=== PATIENT | male | born 1965 | race Caucasian/White ===

== ENCOUNTER 2018-01-20 10:31 | Emergency (ER) | payer OTHER, SELFPAY ==
[2018-01-20 10:40] VITALS: BP 139/88; PULSE 73; RESP 18; TEMP 36.9; O2SAT 97
--- NOTE | 2018-01-20 10:41 | ED.GENADULT ---
HPI - General Adult General Chief complaint: Recheck/Abnormal Lab/Rx Stated complaint: Hypoglycemic Time Seen by Provider: 01/20/18 10:40 Source: patient and EMS Mode of arrival: EMS Limitations: no limitations History of Present Illness HPI narrative: Patient is a 52-year-old male who is it insulin-dependent diabetic. Presenting with hypoglycemia. 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 He did give himself his regular dose of Lantus he had up large dinner it himself of short-acting insulin he had again however he was found to have a glucose of 30. He is awake he is alert and oriented now. He was given D50 he has now had she is and peanut butter and crackers. Related Data Home Medications Medication Instructions Recorded Confirmed insulin lispro [Humalog U-100 10 unit SQ QIDACHS #0 01/15/11 Insulin] lisinopril 5 mg PO QDAY #0 01/15/11 insulin glargine [Lantus U-100 30 unit SQ BID #0 01/05/13 Insulin] aspirin 81 mg PO QDAY #0 01/14/13 multivitamin [Multiple Vitamins] 1 tab PO QDAY #0 09/14/16 Previous Rx's Medication Instructions Recorded oseltamivir [Tamiflu] 75 mg PO BID #9 cap 09/14/16 Allergies Allergy/AdvReac Type Severity Reaction Status Date / Time vancomycin [VANCOMYCIN] Allergy Severe RED SKIN Unverified 01/20/18 10:45 AND COULDN'T BREATH Review of Systems Review of Systems GENERAL: Denies chills, fatigue, malaise, fever, sweats, travel HEENT: Denies sinus pain, ear pain, sore throat, difficulty swallowing, neck pain RESPIRATORY: Denies dyspnea, cough, wheezing, hemoptysis, sputum. CARDIOVASCULAR: Denies chest pain, palpitations, orthopnea, edema GASTROINTESTINAL: Denies nausea, vomiting, abdominal pain, diarrhea, constipation, melena. : Denies dysuria, frequency, incontinence, hematuria, urinary retention, flank pain. MUSCULOSKELETAL: Denies weakness, joint pain, or bony pain SKIN: No rash, no erythema, no pruritus NEUROLOGIC: Denies weakness, dizziness, headache, numbness, change in speech, confusion PSYCHIATRIC: No concerning psychosocial issues. 12 point review of systems is negative except for those stated above and HPI All systems reviewed & are unremarkable except as noted in HPI and below PFSH Medical History Diabetes (Acute) Social History Smoking Status: Current every day smoker Exam Initial Vital Signs Initial Vital Signs: Vital Signs Temperature 98.5 F 01/20/18 10:40 Pulse Rate 73 01/20/18 10:40 Respiratory Rate 18 01/20/18 10:40 Blood Pressure 139/88 H 01/20/18 10:40 Pulse Oximetry 97 01/20/18 10:40 GENERAL: Well-appearing, well-nourished and in no acute distress. HEENT: Head atraumatic,EOMI, pupils reactive, face symmetric CARDIOVASCULAR: Regular rate and rhythm without murmurs, rubs or gallops. RESPIRATORY: Breath sounds equal bilaterally, no wheezes rales or rhonchi. ABDOMEN: Soft, nontender. Normoactive bowel sounds all 4 quadrants. No guarding or rebound. EXTREMITIES: Normal range of motion, no clubbing or edema. Neurovascularly intact NEUROLOGICAL: Alert and oriented x4.Normal gait and speech. Cranial nerves II through XII grossly intact. Good [id number], good bcyi-br-dyqa, strength equal bilaterally, no dysarthria or aphasia, sensation in tact to soft touch bilaterally, no visual changes, no facial droop SKIN: Warm, dry, no laceration, no petechiae, no rashes or lesions. Course Orders Ordered: ED Orders 01/20/18 11:00 Basic Metabolic Panel Stat Complete Blood Count AUTO DIFF Stat Vital Signs - 8 hr 01/20/18 10:40 01/20/18 12:44 01/20/18 13:29 Temperature 98.5 F Pulse Rate 73 75 74 Respiratory Rate 18 16 20 Blood Pressure 139/88 H 145/91 H Blood Pressure [Right Arm] 133/79 H Pulse Oximetry 97 99 97 Medical Decision Making MDM Narrative Medical decision making narrative: Patient is very familiar with diabetes he has been dealing with it for 42 years. He knows that while he is active he does not need but insulin. I think even though he decreased his Humalog dose by half last night probably was still too much. Lab Data Lab results reviewed: Yes I reviewed the patient's lab results. Result diagrams: 01/20/18 11:00 01/20/18 11:00 Lab Results 01/20/18 01/20/18 Range/Units 11:00 11:00 WBC 5.1 (4.5-11.0) X10^3/uL RBC 4.23 L (4.5-5.9) X10^6/uL Hgb 13.3 L (13.5-17.5) g/dL Hct 38.5 L (41-53) % MCV 91.1 (80-100) fL MCH 31.4 (26-34) PG MCHC 34.4 (30-36) % RDW 13.0 (11.6-14.8) % Plt Count 266 (150-400) X10^3/uL Neut % (Auto) 70.7 (50-75) % Lymph % (Auto) 18.1 L (25-40) % [place] % (Auto) 7.9 (3-14) % Eos % (Auto) 2.8 (2-4) % Baso % (Auto) 0.5 (0-2) % Neut # (Auto) 3600 (2180-8503) /uL Sodium 140 (137-145) mmol/L Potassium 4.2 (3.4-5.1) mmol/L Chloride 102 (98-107) mmol/L Carbon Dioxide 30 (22-32) mmol/L BUN 15 (9-20) mg/dL Creatinine 0.60 L (0.66-1.25) mg/dL Estimated GFR > 60.0 (>60) mL/min BUN/Creatinine Ratio 25.0 H (6-22) Glucose 145 H (70-100) mg/dL Calcium 8.2 L (8.4-10.2) mg/dL Discharge Plan Departure Patient Disposition: Home, Self-Care Clinical Impression: Hypoglycemia Discharge Date/Time: 01/20/18 13:30 Interventions: ED Discharge Assessment Last Done: 01/20/18 13:29 Instructions: DI for Hypoglycemia Activity Restrictions/Additional Instructions: *You have been diagnosed with low blood sugar *What to do: May require on adjustment in medication please discuss this with your primary doctor. -I recommend decreasing you're Humalog dose at nighttime. While working. *Continue to take medications as directed *Follow up with your primary care provider in 2-3 days *Return to ER if you should have any new, worsening or concerning symptoms Prescriptions: No Action lisinopril 5 MG tablet 5 mg PO QDAY Qty: 0 RF: 0 insulin lispro [Humalog U-100 Insulin] 100 UNIT/1 ML solution 10 unit SQ QIDACHS Qty: 0 RF: 0 insulin glargine [Lantus U-100 Insulin] 100 UNIT/1 ML solution 30 unit SQ BID Qty: 0 RF: 0 aspirin 81 MG tablet,delayed release (DR/EC) 81 mg PO QDAY Qty: 0 RF: 0 multivitamin [Multiple Vitamins] 1 EACH tablet 1 tab PO QDAY Qty: 0 RF: 0 oseltamivir [Tamiflu] 75 MG capsule 75 mg PO BID Qty: 9 RF: 0 Referrals: Leo Sykes MD [Primary Care Provider] -
--- NOTE | 2018-01-20 10:45 | DIET.PN ---
Brought patient 2 peanut butter, crackers, 2 cheese sticks and milk
[2018-01-20 11:12] LABS: Add Manual Diff / Slide Review NO; Basophils Percent Auto 0.5 % (0-2); Eosinophils Percent Auto 2.8 % (2-4); Hematocrit 38.5 % (41-53); Hemoglobin 13.3 g/dL (13.5-17.5); Lymphocytes Percent Auto 18.1 % (25-40); Mean Corpuscular HGB Conc 34.4 % (30-36); Mean Corpuscular Hemoglobin 31.4 PG (26-34); Mean Corpuscular Volume 91.1 fL (80-100); Monocytes Percent Auto 7.9 % (3-14); Neutrophils Absolute Auto 3600 /uL (3000-5900); Neutrophils Percent Auto 70.7 % (50-75); Platelet Count 266 X10^3/uL (150-400); Red Blood Cell Count 4.23 X10^6/uL (4.5-5.9); White Blood Cell Count 5.1 X10^3/uL (4.5-11.0)
[2018-01-20 11:22] LABS: Blood Urea Nitrogen 15 mg/dL (9-20); Calcium 8.2 mg/dL (8.4-10.2); Carbon Dioxide 30 mmol/L (22-32); Chloride 102 mmol/L (98-107); Estimated Glomerular Filt Rate > 60.0 mL/min (>60); Glucose 145 mg/dL (70-100); HEMOLYSIS < 15 (0-50); Potassium 4.2 mmol/L (3.4-5.1); Sodium 140 mmol/L (137-145)
[2018-01-20 12:44] VITALS: BP 133/79; PULSE 75; RESP 16; O2SAT 99
[2018-01-20 13:29] VITALS: BP 145/91; PULSE 74; RESP 20; O2SAT 97
== END 2018-01-20 13:30 | disposition home or self-care (01) ==
PROVIDERS: Emergency Provider Emergency Medicine; PCP Family Medicine
DX: E16.2 Hypoglycemia, unspecified (principal)
CPT/HCPCS: 80048; 82962; 85025; 99283

== ENCOUNTER 2018-10-10 00:28 | Emergency (ER) | payer OTHER, SELFPAY ==
[2018-10-10 00:57] VITALS: BP 149/89; PULSE 83; RESP 20; TEMP 36.6; O2SAT 99; BMI 25.1
--- NOTE | 2018-10-10 01:48 | ED.SKABFB ---
HPI - Skin/Abscess/Foreign Bdy General Chief complaint: Skin/Abscess/Foreign Body Stated complaint: sore on stomach Time Seen by Provider: 10/10/18 01:48 Source: patient Mode of arrival: ambulatory Limitations: no limitations History of Present Illness HPI narrative: The patient has a skin lesion left anterior abdomen that has been there for 2 weeks. Without injury or other problems the area site where the superficial skin. There was no purulent discharge. This area is still erythematous and raised. There are no other issues like bug bites or mosquito bites. There is no obvious reason this issue happened. He has no chronic skin illness, and no other skin lesions. Related Data Home Medications Medication Instructions Recorded Confirmed insulin lispro [Humalog U-100 10 unit SQ QIDACHS #0 01/15/11 Insulin] lisinopril 5 mg PO QDAY #0 01/15/11 insulin glargine [Lantus U-100 30 unit SQ BID #0 01/05/13 Insulin] aspirin 81 mg PO QDAY #0 01/14/13 multivitamin [Multiple Vitamins] 1 tab PO QDAY #0 09/14/16 Previous Rx's Medication Instructions Recorded oseltamivir [Tamiflu] 75 mg PO BID #9 cap 09/14/16 doxycycline hyclate 100 mg PO BID 10 Days #20 tab 10/10/18 Allergies Allergy/AdvReac Type Severity Reaction Status Date / Time vancomycin [VANCOMYCIN] Allergy Severe RED SKIN Unverified 01/20/18 10:45 AND COULDN'T BREATH Review of Systems Review of Systems ROS Unobtainable: All systems reviewed & are unremarkable except as noted in HPI and below Constitutional Denies chills and Denies fever(s) Gastrointestinal Gastrointestinal: Denies abdominal pain, Denies change in bowel habits, Denies diarrhea, Denies nausea and Denies vomiting Integumentary/Breasts Comments: 1.5 x 1.5 shallow skin avulsion on the left lower abdomen. There is no purulent discharge. There is slightly thickened. There is no area of erythema around the open skin lesion. He has a slight cellulitis around the site. [facility] Medical History Hypertension (Acute) Diabetes (Acute) Social History Smoking Status: Never smoker Social History Smoking Status: Never smoker Exam Initial Vital Signs Initial Vital Signs: Vital Signs Temperature 98 F 10/10/18 00:57 Pulse Rate 83 10/10/18 00:57 Respiratory Rate 20 10/10/18 00:57 Blood Pressure 149/89 H 10/10/18 00:57 Pulse Oximetry 99 10/10/18 00:57 Const General: cooperative and well developed Nutritional Appearance: well nourished Orientation: alert, awake, oriented x3 and not confused GI Inspection: non-distended Palpation: soft, no hepatosplenomegaly, No guarding, No pulsatile mass and No tender Auscultation: normal bowel sounds Skin General: No no rashes or lesions noted, No jaundice and No petechiae Other: Circular area of excoriated skin to the left lower abdomen. Slight induration with area of inflammation around it. No purulence. The excoriated area is not seemingly infected, but there is surrounding mild cellulitis. Course Course Narrative: The patient has an area of slight erythema in the left lower abdomen. For diabetic management I did give him a refill for 31 meli 8 mm needles. Orders Ordered: Discontinued Medications Doxycycline Hyclate (Vibramycin) 100 mg PO NOW ONE Stop: 10/10/18 02:01 Vital Signs - 8 hr 10/10/18 00:57 Temperature 98 F Pulse Rate 83 Respiratory Rate 20 Blood Pressure 149/89 H Pulse Oximetry 99 Discharge Plan Departure Patient Disposition: Home Clinical Impression: Abdominal wall cellulitis Instructions: DI for Cellulitis -- Adult Activity Restrictions/Additional Instructions: Doxycycline 2 times daily for 10 days. Apply warm compresses to the site frequently. Return here for increasing redness or drainage. Return here if he develops fever. Prescriptions: New doxycycline hyclate 100 mg tablet 100 mg PO BID 10 Days Qty: 20 RF: 0 No Action lisinopril 5 MG tablet 5 mg PO QDAY Qty: 0 RF: 0 insulin lispro [Humalog U-100 Insulin] 100 UNIT/1 ML solution 10 unit SQ QIDACHS Qty: 0 RF: 0 insulin glargine [Lantus U-100 Insulin] 100 UNIT/1 ML solution 30 unit SQ BID Qty: 0 RF: 0 aspirin 81 MG tablet,delayed release (DR/EC) 81 mg PO QDAY Qty: 0 RF: 0 multivitamin [Multiple Vitamins] 1 EACH tablet 1 tab PO QDAY Qty: 0 RF: 0 oseltamivir [Tamiflu] 75 MG capsule 75 mg PO BID Qty: 9 RF: 0 Referrals: Leo Sykes MD [Primary Care Provider] -
[2018-10-10] MEDS: DOXYCYCLINE HYCLATE 100 MG TABLET PO (02:00)
[2018-10-10 02:09] VITALS: BP 151/85; PULSE 90; RESP 20; O2SAT 99
== END 2018-10-10 02:26 | disposition home or self-care (01) ==
PROVIDERS: Emergency Provider Emergency Medicine; PCP Family Medicine
DX: L03.311 Cellulitis of abdominal wall (principal)
CPT/HCPCS: 99282

== ENCOUNTER 2020-06-25 20:47 | Emergency (ER) | payer OTHER, SELFPAY ==
--- NOTE | 2020-06-25 21:08 | DI.RAD.S_ITS ---
PROCEDURE: XR RIBS LT MIN 3V W CXR1V INDICATIONS: fall with rib pain TECHNIQUE: 2 views of the left ribs were acquired, along with a single view chest. COMPARISON: [facility], CT, PE STUDY (CTA CHEST), 01/15/2011, 16:42. [facility], CR, CHEST 1 VIEW, 09/14/2016, 20:10. [facility], , CHEST 2 VIEW, 04/24/2015, 16:55. FINDINGS: Surgical changes and devices: Cholecystectomy clips are seen. Bones and chest wall: A marker is placed upon the area of clinical concern. Within this region, no acute rib fracture or other significant rib abnormality can be seen. There are remote left posterior rib fractures seen, as before. No suspicious bony lesions. Age-appropriate bony degenerative changes are seen. Overlying soft tissues appear unremarkable. Lungs and pleura: No pleural effusions or pneumothorax. Lungs appear clear. Mediastinum: Mediastinal contours appear normal. Heart size is normal. IMPRESSION: No displaced, acute rib fracture can be seen. Several remote left posterior rib fractures can be seen. No pneumothorax. Dictated by: Brian Aguirre M.D. on 06/26/2020 at 7:22 Approved by: Brian Aguirre M.D. on 06/26/2020 at 7:25
[2020-06-25 21:13] VITALS: BP 129/90; PULSE 80; RESP 20; TEMP 36.6; O2SAT 100
--- NOTE | 2020-06-25 22:28 | ED.BACK ---
HPI - Back Pain/Injury General Chief Complaint: Back Pain/Injury Stated Complaint: FALL LEFT SIDE RIB PAIN Time Seen by Provider: 06/25/20 21:00 Source: patient and family Mode of arrival: Ambulatory Limitations: no limitations History of Present Illness HPI Narrative: 54-year-old male nonsmoker with history of diabetes presents with family in the chief complaint of left rib pain after a fall yesterday. He states he fell onto his left-sided ribs into the bathtub and has had pain, particularly with deep breath or motion since. He denies any head, neck or back pain. He denies any coughing up of blood. Complaint: fall Onset (ago): day(s) Duration: constant Severity: moderate Quality: sharp Relieving factors: immobilization Exacerbating factors: movement, deep breaths and coughing/sneezing Context: fall Associated symptoms: denies other symptoms Related Data Home Medications Medication Instructions Recorded Confirmed insulin lispro [Humalog U-100 10 unit SQ QIDACHS #0 01/15/11 Insulin] lisinopril 5 mg PO QDAY #0 01/15/11 insulin glargine [Lantus U-100 30 unit SQ BID #0 01/05/13 Insulin] aspirin 81 mg PO QDAY #0 01/14/13 multivitamin [Multiple Vitamins] 1 tab PO QDAY #0 09/14/16 Previous Rx's Medication Instructions Recorded oseltamivir [Tamiflu] 75 mg PO BID #9 cap 09/14/16 hydrocodone-acetaminophen 1 tab PO Q4-6H PRN #10 tab 06/25/20 Allergies Allergy/AdvReac Type Severity Reaction Status Date / Time vancomycin [VANCOMYCIN] Allergy Severe RED SKIN Unverified 01/20/18 10:45 AND COULDN'T BREATH Review of Systems Constitutional Constitutional: Denies chills, Denies fatigue, Denies fever(s), Denies frequent falls, Denies lethargy and Denies weakness Eyes Eyes: Denies change in vision, Denies eye discharge, Denies irritation and Denies loss of vision ENT Ears, Nose, Mouth, and Throat: Denies change in voice, Denies dizziness, Denies neck pain, Denies sore throat and Denies throat swelling Cardiovascular Cardiovascular: Reports chest pain, Denies irregular heart rhythm, Denies lightheadedness, Denies palpitations, Denies dyspnea, Denies dyspnea on exertion and Denies orthopnea Respiratory Respiratory: Denies cough, Denies dyspnea, Denies dyspnea on exertion and Denies wheezing Gastrointestinal Gastrointestinal: Denies abdominal pain, Denies change in bowel habits, Denies diarrhea, Denies nausea and Denies vomiting Musculoskeletal Musculoskeletal: Denies neck pain and Denies numbness Integumentary/Breasts Skin/Breast: Denies pruritus, Denies erythema, Denies rash and Denies wounds Neurologic Neurologic: Denies behavioral changes, Denies confusion, Denies dizziness, Denies frequent falls, Denies loss of vision, Denies numbness and Denies weakness Psychiatric Psychiatric: Denies anxiety, Denies behavioral changes, Denies confusion, Denies depression, Denies homicidal ideation and Denies suicidal ideation Endocrine Endocrine: Denies fatigue, Denies flushing and Denies palpitations Hematologic/Lymphatic Hematologic/Lymphatic: Denies easy bruising Allergic/Immunologic Allergic/Immunologic: Denies urticaria, Denies throat swelling and Denies wheezing Patient History Medical History Diabetes Hypertension Social History Smoking Status: Never smoker Smoking Status: Never smoker alcohol intake frequency: a few times a month Substance Use Type: does not use Exam Narrative Exam Narrative: GENERAL: [54] year old patient appears stated age. Well-nourished, well-developed patient, in mild distress. Rubbing his left-sided ribs, GCS 15 HEAD: Atraumatic. Normocephalic. EYES: Pupils equal round and reactive. Extraocular motions intact. No scleral icterus. No injection or drainage. ENT: Nose without bleeding, purulent drainage. Throat without erythema, tonsillar hypertrophy or exudate. Airway patent. NECK: Trachea midline. Non tender CARDIOVASCULAR: Regular rate and rhythm without murmurs, gallops, or rubs. Left posterior ribs tender to palpation, no crepitance or clicking noted. No external evidence of injury such as bruising, abrasion or laceration. RESPIRATORY: Clear to auscultation. Breath sounds equal bilaterally. No wheezes, rales, or rhonchi. GASTROINTESTINAL: Abdomen soft, non-tender, nondistended. EXTREMITIES: No edema or joint tenderness. BACK: Nontender without deformity or crepitance. No flank tenderness. NEURO: AOx3. SKIN: No rash or erythema of visible areas Initial Vital Signs Initial Vital Signs: Vital Signs Temperature 97.9 F 06/25/20 21:13 Pulse Rate 80 06/25/20 21:13 Respiratory Rate 20 06/25/20 21:13 Blood Pressure 129/90 06/25/20 21:13 Pulse Oximetry 100 06/25/20 21:13 Course Orders Ordered: Discontinued Medications Hydrocodone Bitart/Acetaminophen (Hydrocodone/Acet 5/325 Prepack) 1 bottle MISC SEEINSTR ONE Stop: 06/25/20 23:09 Last Admin: 06/25/20 23:16 Dose: 1 bottle Documented by: ARIELLE Vital Signs Vital signs: Vital Signs - 8 hr 06/25/20 21:13 Temperature 97.9 F Pulse Rate 80 Respiratory Rate 20 Blood Pressure 129/90 Pulse Oximetry 100 MDM - Back Pain/Injury Imaging Data Chest x-ray: Radiologist's Impression: Chart Viewer Diagnostics DATE TYPE STATUS REF RANGE/AUTHOR Hx 06/25/20 21:08 Brian Aguirre Steven A 54, M0 1965 [facility] ER, Main ED 72.575kg Back Pain/Injury Search Chart No Data to Display Total Pending Discharge RED SKIN AND COULDN'T BREATH ONSET 06/25/20 21:13 Suresh Starkey 54 M [address] [address]VBqt ReportAddendum Patient: JakySuresh AMR#: [id number]: 1965Acct:[id number]/Sex: 54 / MDate of Service: 06/25/20Loc: EDAccession Number: [id number] Procedure: XR ribs LT min 3V w CXR1V Ordering Provider: Jamie Vicente D.O. ADDENDUMThis report includes an Addendum and supersedes previous reports for this exam. PROCEDURE: XR RIBS LT MIN 3V W CXR1V INDICATIONS: fall with rib pain TECHNIQUE: 2 views of the left ribs were acquired, along with a single view chest. COMPARISON: [facility], CT, PE STUDY (CTA CHEST), 01/15/2011, 16:42. [facility], CR, CHEST 1 VIEW, 09/14/2016, 20:10. [facility], CHEST 2 VIEW, 04/24/2015, 16:55. FINDINGS: Surgical changes and devices: Cholecystectomy clips are seen. Bones and chest wall: A marker is placed upon the area of clinical concern. Within this region, no acute rib fracture or other significant rib abnormality can be seen. There are remote left posterior rib fractures seen, as before. No suspicious bony lesions. Age-appropriate bony degenerative changes are seen. Overlying soft tissues appear unremarkable. Lungs and pleura: No pleural effusions or pneumothorax. Lungs appear clear. Mediastinum: Mediastinal contours appear normal. Heart size is normal. IMPRESSION: No displaced, acute rib fracture can be seen. Several remote left posterior rib fractures can be seen. No pneumothorax. Dictated by: Brian Aguirre M.D. on 06/26/2020 at 7:22 Approved by: Brian Aguirre M.D. on 06/26/2020 at 7:25 ADDENDUM: This upon further review, very faintly seen, nondisplaced left posterior 7th and 8th ribs can be seen. There is a minimally displaced left anterior 6th rib fracture also noted. These fractures are described on the preliminary report, although the fractures are on the LEFT not on the right. Dictated by: Brian Aguirre M.D. on 06/26/2020 at 7:36 Approved by: Brian Aguirre M.D. on 06/26/2020 at 7:39 Addendum Dictated By:Brian Aguirre MDAddyifan Signed By:Addendum Cosigned By:DD/ TD/TT: 06/26/20 PROCEDURE: XR RIBS LT MIN 3V W CXR1V INDICATIONS: fall with rib pain TECHNIQUE: 2 views of the left ribs were acquired, along with a single view chest. COMPARISON: [facility], CT, PE STUDY (CTA CHEST), 01/15/2011, 16:42. [facility], , CHEST 1 VIEW, 09/14/2016, 20:10. [facility], , CHEST 2 VIEW, 04/24/2015, 16:55. FINDINGS: Surgical changes and devices: Cholecystectomy clips are seen. Bones and chest wall: A marker is placed upon the area of clinical concern. Within this region, no acute rib fracture or other significant rib abnormality can be seen. There are remote left posterior rib fractures seen, as before. No suspicious bony lesions. Age-appropriate bony degenerative changes are seen. Overlying soft tissues appear unremarkable. Lungs and pleura: No pleural effusions or pneumothorax. Lungs appear clear. Mediastinum: Mediastinal contours appear normal. Heart size is normal. IMPRESSION: No displaced, acute rib fracture can be seen. Several remote left posterior rib fractures can be seen. No pneumothorax. Dictated by: Brian Aguirre M.D. on 06/26/2020 at 7:22 Approved by: Brian Aguirre M.D. on 06/26/2020 at 7:25 Discharge Plan Departure Patient Disposition: Home Clinical Impression: Fracture, ribs Qualifiers: Encounter type: initial encounter Rib fracture type: multiple ribs Fracture type: closed Laterality: left Qualified Code(s): S22.42XA - Multiple fractures of ribs, left side, initial encounter for closed fracture Activity Restrictions/Additional Instructions: *You have been diagnosed with [fall with left-sided rib fractures] *What to do: *Take medications as directed *Follow up with your primary care provider in 2-3 days, call for an appointment. Let them know you were seen in the Emergency Department and that we ask that you be seen in follow up *Return to ER if you should have any new, worsening or concerning symptoms Prescriptions: New hydrocodone-acetaminophen 5-325 mg tablet 1 tab PO Q4-6H PRN (Reason: pain) Qty: 10 RF: 0 No Action lisinopril 5 MG tablet 5 mg PO QDAY Qty: 0 RF: 0 insulin lispro [Humalog U-100 Insulin] 100 UNIT/1 ML solution 10 unit SQ QIDACHS Qty: 0 RF: 0 insulin glargine [Lantus U-100 Insulin] 100 UNIT/1 ML solution 30 unit SQ BID Qty: 0 RF: 0 aspirin 81 MG tablet,delayed release (DR/EC) 81 mg PO QDAY Qty: 0 RF: 0 multivitamin [Multiple Vitamins] 1 EACH tablet 1 tab PO QDAY Qty: 0 RF: 0 oseltamivir [Tamiflu] 75 MG capsule 75 mg PO BID Qty: 9 RF: 0 Referrals: Leo Sykes MD [Primary Care Provider] -
[2020-06-25] MEDS: HYDROCODONE/ACET 5/325 PREPACK 1 BOTTLE MISC (23:16)
== END 2020-06-25 23:18 | disposition home or self-care (01) ==
PROVIDERS: Emergency Provider Emergency Medicine; PCP Family Medicine
DX: S22.42XA Multiple fractures of ribs, left side, initial encounter for closed fracture (principal); W18.2XXA Fall in (into) shower or empty bathtub, initial encounter; E11.9 Type 2 diabetes mellitus without complications
CPT/HCPCS: 71101; 99281; 99283

== ENCOUNTER 2021-01-16 11:54 | Emergency (ER) | payer MEDICARE, SELFPAY ==
[2021-01-16 12:00] VITALS: BP 171/86; PULSE 95; RESP 18; TEMP 36.8; O2SAT 96; BMI 23.6
--- NOTE | 2021-01-16 12:12 | DI.CT.S_ITS ---
PROCEDURE: CT CERVICAL SPINE WO CON INDICATIONS: fall with head and neck pain TECHNIQUE: Noncontrast 3 mm thick sections acquired from the skull base to the T4 level. Sagittal and coronal reformats were then constructed. For radiation dose reduction, the following was used: automated exposure control, adjustment of mA and/or kV according to patient size. COMPARISON: [facility], CT, CT HEAD/BRAIN WO CON, 01/16/2021, 12:37. FINDINGS: Image quality: This examination is somewhat limited by quantum mottle artifact. Bones: No fractures or dislocations. Visualized superior ribs are intact. At the C5-C6 level, there are partially bridging anterior osteophytes. At C6-C7, there is moderate loss of disc height seen. Calcification can be seen along the posterior aspect of the discs at C2-C3, C4-C5, and C5-C6. Soft tissues: Prevertebral soft tissues are normal in thickness. No paravertebral hematomas. No apical pneumothoraces. IMPRESSION: Negative for fracture. Degenerative changes are seen, which are worst inferiorly. Dictated by: Brian Aguirre M.D. on 01/16/2021 at 11:51 Approved by: Brian Aguirre M.D. on 01/16/2021 at 11:52
--- NOTE | 2021-01-16 12:12 | DI.CT.S_ITS ---
PROCEDURE: CT HEAD/BRAIN WO CON INDICATIONS: fall with head injury TECHNIQUE: Noncontrast 4.5 mm thick angled axial sections acquired from the foramen magnum to the vertex, with coronal and sagittal reformats. For radiation dose reduction, the following was used: automated exposure control, adjustment of mA and/or kV according to patient size. COMPARISON: [facility], CT, CT CERVICAL SPINE WO CON, 01/16/2021, 12:37. FINDINGS: Image quality: Excellent. CSF spaces: Basal cisterns are patent. No extra-axial fluid collections. Ventricles are normal in size and shape. Brain: No midline shift. No intracranial masses or hemorrhage. Mendez-white matter interface is normal. Skull and face: Minimal scalp hematoma can be seen near the vertex, to the right of the midline. No associated calvarial fracture is seen. Calvarium and visualized facial bones are intact, without suspicious lesions. Right-sided scleral banding can be seen. Abnormal increased density can be seen centrally. An abnormal left globe can be seen, with hyperdensity posteriorly and calcification along the posterior aspect of the globe. Sinuses: Visualized sinuses and mastoids are clear. IMPRESSION: No acute intracranial hemorrhage is seen. No acute intracranial process is seen. Abnormal globes noted. Minimal scalp hematoma seen superiorly, without an underlying calvarial fracture. Dictated by: Brian Aguirre M.D. on 01/16/2021 at 11:53 Approved by: Brian Aguirre M.D. on 01/16/2021 at 11:55
[2021-01-16] MEDS: LIDOCAINE 1% W/EPI 1 ML SUBCUT (12:35)
[2021-01-16] MEDS: TET,DIPH,PERTUSS(ACELL),VAC/PF 0.5 ML SYRINGE IM (12:36)
[2021-01-16 12:45] VITALS: BP 150/82; PULSE 18; RESP 18; O2SAT 97
[2021-01-16 13:44] VITALS: BP 158/82; PULSE 89; RESP 18; O2SAT 98
--- NOTE | 2021-01-16 15:40 | ED_ITS ---
HPI - Head Injury General Chief complaint: Head Injury Stated complaint: diabetic and had reaction and fell hit head Time Seen by Provider: 01/16/21 12:05 Source: patient Mode of arrival: Ambulatory Limitations: physical limitation History of Present Illness HPI Narrative: 55-year-old male nonsmoker with history of diabetes presents with a chief complaint of a fall with head injury and neck pain. He states he has become legally blind as a consequence of his diabetes. He has been going through some medication changes and states that he felt a little lightheaded upon standing today and subsequently fell. He denies loss of consciousness and states that he has felt tremendous improvement since eating and drinking. As stated he did not suffer a loss of consciousness, has full recall. He denies any ongoing head pain. He takes no blood thinners and denies use of alcohol. He denies any focal neurologic findings such as numbness, tingling or weakness. He is otherwise well and free of complaint. MD Complaint: head injury and fall Onset (ago): minute(s) Mechanism of Injury: fall Place: home Loss of Consciousness: no Location of injury: occipital Severity: mild Quality: burning Radiation: none Other Injuries: neck Context: other Associated symptoms: denies other symptoms Related Data Home Medications Medication Instructions Recorded Confirmed lisinopril 5 mg PO QDAY #0 01/15/11 01/16/21 Lantus U-100 Insulin 25 unit SQ BEDTIME #0 01/05/13 01/16/21 aspirin 81 mg PO QDAY #0 01/14/13 01/16/21 multivitamin [Multiple Vitamins] 1 tab PO QDAY #0 09/14/16 01/16/21 insulin glargine [Lantus Solostar 15 unit SUBCUT DAILY 01/16/21 01/16/21 U-100 Insulin] insulin lispro [Humalog KwikPen See Rx Instructions .ROUTE .COMPLEX 01/16/21 01/16/21 Insulin] Allergies Allergy/AdvReac Type Severity Reaction Status Date / Time vancomycin [VANCOMYCIN] Allergy Severe RED SKIN Verified 01/16/21 12:20 AND COULDN'T BREATH Review of Systems Constitutional Constitutional: Denies chills, Denies fatigue, Denies fever(s), Denies frequent falls, Denies lethargy and Denies weakness Eyes Eyes: Denies change in vision, Denies eye discharge, Denies irritation and Denies loss of vision ENT Ears, Nose, Mouth, and Throat: Denies change in voice, Denies dizziness, Reports neck pain, Denies sore throat and Denies throat swelling Cardiovascular Cardiovascular: Denies chest pain, Denies irregular heart rhythm, Denies lightheadedness, Denies palpitations, Denies dyspnea, Denies dyspnea on exertion and Denies orthopnea Respiratory Respiratory: Denies cough, Denies dyspnea, Denies dyspnea on exertion and Denies wheezing Gastrointestinal Gastrointestinal: Denies abdominal pain, Denies change in bowel habits, Denies diarrhea, Denies nausea and Denies vomiting Musculoskeletal Musculoskeletal: Reports neck pain and Denies numbness Integumentary/Breasts Skin/Breast: Denies pruritus, Denies erythema, Denies rash and Reports wounds Neurologic Neurologic: Denies behavioral changes, Denies confusion, Denies dizziness, Denies frequent falls, Denies loss of vision, Denies numbness and Denies weakness Psychiatric Psychiatric: Denies anxiety, Denies behavioral changes, Denies confusion, Denies depression, Denies homicidal ideation and Denies suicidal ideation Endocrine Endocrine: Denies fatigue, Denies flushing and Denies palpitations Hematologic/Lymphatic Hematologic/Lymphatic: Denies easy bruising Allergic/Immunologic Allergic/Immunologic: Denies urticaria, Denies throat swelling and Denies wheezing Patient History Medical History Diabetes Hypertension Social History Smoking Status: Never smoker Smoking Status: Never smoker alcohol intake frequency: a few times a month Substance Use Type: does not use Exam Narrative Exam Narrative: GENERAL: [55] year old patient appears stated age. Well- developed patient, in mild distress. GCS 15 HEAD: 3 cm vertically oriented laceration with minimal bleeding on the occiput, no foreign body noted. No evidence of depressed skull fracture. EYES: Pupils equal round and reactive. No hyphema Extraocular motions intact. No scleral icterus. No injection or drainage. ENT: Nose without bleeding, purulent drainage. Throat without erythema, tonsillar hypertrophy or exudate. Airway patent. NECK: Trachea midline. Minimal midline neck pain, no step-offs or crepitance. No change with axial load CARDIOVASCULAR: Regular rate and rhythm without murmurs, gallops, or rubs. RESPIRATORY: Clear to auscultation. Breath sounds equal bilaterally. No wheezes, rales, or rhonchi. GASTROINTESTINAL: Abdomen soft, non-tender, nondistended. EXTREMITIES: No edema or joint tenderness. BACK: Nontender without deformity or crepitance. No flank tenderness. NEURO: AOx3. SKIN: No rash or erythema of visible areas Initial Vital Signs Initial Vital Signs: Vital Signs Temperature 98.3 F 01/16/21 12:00 Pulse Rate 95 H 01/16/21 12:00 Respiratory Rate 18 01/16/21 12:00 Blood Pressure 171/86 H 01/16/21 12:00 Pulse Oximetry 96 01/16/21 12:00 Procedures Laceration Repair Laceration 1: Site: scalp Size (cm): 3 Description: linear Depth: simple, single layer Local Anesthetic: lidocaine 1% and with epi Amount of anesthesia used (mL): 4 Pre-repair: wound explored and deep structures intact Skin layer closed with: angelina Course Orders Ordered: ED Orders 01/16/21 12:12 CT cervical spine wo con Stat CT head/brain wo con Stat Discontinued Medications Diphtheria/Tetanus/Acell Pertussis (Tet,Diph,Pertuss(Acell),Vac/Pf 0.5 Ml Syringe) 0.5 ml IM .ONCE ONE Stop: 01/16/21 12:13 Last Admin: 01/16/21 12:36 Dose: 0.5 ml Documented by: BERONICA Lidocaine/Epinephrine (Lidocaine 1% W/Epi) 1 ml SUBCUT NOW ONE Stop: 01/16/21 12:13 Last Admin: 01/16/21 12:35 Dose: 1 ml Documented by: BERONICA Vital Signs Vital signs: Vital Signs - 8 hr 01/16/21 12:00 01/16/21 12:45 01/16/21 13:44 Temperature 98.3 F Pulse Rate 95 H 18 L 89 Respiratory Rate 18 18 18 Blood Pressure 171/86 H 150/82 H 158/82 H Pulse Oximetry 96 97 98 MDM - Head Injury Lab Data Labs: Point of Care Testing Glucose POC [address] scan - head: Radiologist's Impression: [address] [id number] Scan ReportSigned Patient: Suresh Starkey [facility]#: [id number]: 1965Acct:[id number]/Sex: 55 / MDate of Service: 01/16/21Loc: EDAccession Number: [id number] Procedure: CT head/brain wo con Ordering Provider: Jamie Vicente D.O. PROCEDURE: CT HEAD/BRAIN WO CON INDICATIONS: fall with head injury TECHNIQUE: Noncontrast 4.5 mm thick angled axial sections acquired from the foramen magnum to the vertex, with coronal and sagittal reformats. For radiation dose reduction, the following was used: automated exposure control, adjustment of mA and/or kV according to patient size. COMPARISON: [facility], CT, CT CERVICAL SPINE WO CON, 01/16/2021, 12:37. FINDINGS: Image quality: Excellent. CSF spaces: Basal cisterns are patent. No extra-axial fluid collections. Ventricles are normal in size and shape. Brain: No midline shift. No intracranial masses or hemorrhage. Mendez-white matter interface is normal. Skull and face: Minimal scalp hematoma can be seen near the vertex, to the right of the midline. No associated calvarial fracture is seen. Calvarium and visualized facial bones are intact, without suspicious lesions. Right-sided scleral banding can be seen. Abnormal increased density can be seen centrally. An abnormal left globe can be seen, with hyperdensity posteriorly and calcification along the posterior aspect of the globe. Sinuses: Visualized sinuses and mastoids are clear. IMPRESSION: No acute intracranial hemorrhage is seen. No acute intracranial process is seen. Abnormal globes noted. Minimal scalp hematoma seen superiorly, without an underlying calvarial fracture. Dictated by: Brian Aguirre M.D. on 01/16/2021 at 11:53 Approved by: Brian Aguirre M.D. on 01/16/2021 at 11:55 CT - cervical spine: Radiologist's Impression: [address] [id number] Scan ReportSigned Patient: Suresh Starkey [facility]#: [id number]: 1965Acct:[id number]/Sex: 55 / MDate of Service: 01/16/21Loc: EDAccession Number: [id number] Procedure: CT cervical spine wo con Ordering Provider: Jamie Vicente D.O. PROCEDURE: CT CERVICAL SPINE WO CON INDICATIONS: fall with head and neck pain TECHNIQUE: Noncontrast 3 mm thick sections acquired from the skull base to the T4 level. Sagittal and coronal reformats were then constructed. For radiation dose reduction, the following was used: automated exposure control, adjustment of mA and/or kV according to patient size. COMPARISON: [facility], CT, CT HEAD/BRAIN WO CON, 01/16/2021, 12:37. FINDINGS: Image quality: This examination is somewhat limited by quantum mottle artifact. Bones: No fractures or dislocations. Visualized superior ribs are intact. At the C5-C6 level, there are partially bridging anterior osteophytes. At C6- C7, there is moderate loss of disc height seen. Calcification can be seen along the posterior aspect of the discs at C2-C3, C4-C5, and C5-C6. Soft tissues: Prevertebral soft tissues are normal in thickness. No paravertebral hematomas. No apical pneumothoraces. IMPRESSION: Negative for fracture. Degenerative changes are seen, which are worst inferiorly. Dictated by: Brian Aguirre M.D. on 01/16/2021 at 11:51 Approved by: Brian Aguirre M.D. on 01/16/2021 at 11:52 Discharge Plan Departure Patient Disposition: Home Clinical Impression: Laceration of occipital scalp Qualifiers: Encounter type: initial encounter Qualified Code(s): S01.01XA - Laceration without foreign body of scalp, initial encounter Instructions: DI for Laceration Repair of the Scalp Activity Restrictions/Additional Instructions: *You have been diagnosed with [fall with scalp laceration and repair with angelina] *What to do: *Please continue to take your regular medications as directed. [ ] New medication prescriptions sent to your pharmacy: [ ] [ ] New medication written as a paper prescription [ x] No new medications given * Please keep the wound clean and dry to the best of your ability. Please monitor for signs of infection such as redness to the skin or increasing pain. Have the angelina removed by your doctor in about 7 days. If you are unable to get into your doctor, we would be happy to remove the angelina in that same timeframe. *Return to Emergency Department if you should have any new, worsening or concerning symptoms, such as [fever greater than 101 F, shaking chills, worsening pain, persistent vomiting or other bothersome symptoms] Prescriptions: No Action lisinopril 5 MG tablet 5 mg PO QDAY Qty: 0 RF: 0 Lantus U-100 Insulin 100 UNIT/1 ML solution 25 unit SQ BEDTIME Qty: 0 RF: 0 aspirin 81 MG tablet,delayed release (DR/EC) 81 mg PO QDAY Qty: 0 RF: 0 multivitamin [Multiple Vitamins] 1 EACH tablet 1 tab PO QDAY Qty: 0 RF: 0 insulin lispro [Humalog KwikPen Insulin] 100 unit/mL insulin pen See Rx Instructions .ROUTE .COMPLEX RF: 0 Lantus Solostar U-100 Insulin 100 unit/mL (3 mL) insulin pen 15 unit SUBCUT DAILY RF: 0 Referrals: Leo Sykes MD [Primary Care Provider] -
== END 2021-01-16 13:52 | disposition home or self-care (01) ==
PROVIDERS: Emergency Provider Emergency Medicine; PCP Family Medicine
DX: S01.01XA Laceration without foreign body of scalp, initial encounter (principal); M54.2 Cervicalgia; W19.XXXA Unspecified fall, initial encounter; Z23 Encounter for immunization
CPT/HCPCS: 12002; 70450; 72125; 82962; 90471; 99283; 99284; 90715

== ENCOUNTER 2024-01-28 16:22 | Emergency (ER) | payer MEDICAID, MEDICARE, SELFPAY ==
[2024-01-28] VITALS (28 sets, daily range): BP systolic 124–177; BP diastolic 65–90; PULSE 75–117; RESP 17–35; TEMP 36.8; O2SAT 96–100; BMI 23.9
--- NOTE | 2024-01-28 16:50 | EKG_ITS ---
[address] [address] Test Date: 2024-01-28 Pat Name: Suresh Starkey Department: Room: Gender: Male Optics Engineer: RADAMES : 1965 Requested By: Order Number: [id number] Reading MD: Tim Mcguire Measurements Intervals [place] Rate: 91 P: 40 VA: 146 QRS: 38 QRSD: 86 T: 51 QT: 358 QTc: 440 Interpretive Statements Normal sinus rhythm Electronically Signed On 01-30-2024 19:41:38 PDT by Tim Mcguire
--- NOTE | 2024-01-28 16:50 | DI.RAD.S_ITS ---
PROCEDURE: XR CHEST 1V INDICATIONS: chest pain TECHNIQUE: One view of the chest was acquired. COMPARISON: [facility], , CHEST 1 VIEW, 09/14/2016, 20:10. FINDINGS: Surgical changes and devices: None. Lungs and pleura: Lungs are clear. No pleural effusions or pneumothorax. Mediastinum: Mediastinal contours appear normal. Heart size is normal. Bones and chest wall: No suspicious bony lesions. Overlying soft tissues appear unremarkable. IMPRESSION: No acute pulmonary process. Dictated by: Isabella Ortega M.D. on 01/28/2024 at 17:24 Approved by: Isabella Ortega M.D. on 01/28/2024 at 17:25
[2024-01-28] MEDS: ASPIRIN 81 MG CHEW TAB 324 MG PO (16:54)
--- NOTE | 2024-01-28 16:57 | PC.NURSE ---
Provider Aashish made aware of patient sudden chest tightness. NIO of chest pain order set in place.
[2024-01-28 16:59] LABS: Add Manual Diff / Slide Review NO; Basophils Absolute Auto 100 /uL (0-100); Basophils Percent Auto 2.3 % (0-2); Eosinophils Absolute Auto 100 /uL (0-450); Eosinophils Percent Auto 2.2 % (2-4); Hematocrit 40.4 % (41-53); Hemoglobin 14.1 g/dL (13.5-17.5); Lymphocytes Absolute Auto 1200 /uL (1100-4500); Mean Corpuscular Hemoglobin 31.8 PG (26-34); Mean Corpuscular Volume 90.9 fL (80-100); Monocytes Absolute Auto 500 /uL (0-900); Monocytes Percent Auto 9.8 % (3-14); Neutrophils Absolute Auto 2800 /uL (1500-7000); Neutrophils Percent Auto 59.7 % (50-75); Platelet Count 240 X10^3/uL (150-400); Red Blood Cell Count 4.44 X10^6/uL (4.5-5.9); White Blood Cell Count 4.7 X10^3/uL (4.5-11.0)
--- NOTE | 2024-01-28 17:00 | EKG_ITS ---
[address] [address] Test Date: 2024-01-28 Pat Name: Suresh Starkey Department: Room: Gender: Male Electronic Warfare Operator: RADAMES : 1965 Requested By: Order Number: [id number] Reading MD: Tim Mcguire Measurements Intervals [place] Rate: 95 P: 34 AR: 132 QRS: 24 QRSD: 90 T: 39 QT: 346 QTc: 434 Interpretive Statements Normal sinus rhythm Electronically Signed On 01-30-2024 19:41:57 PDT by Tim Mcguire
--- NOTE | 2024-01-28 17:00 | PC.NURSE ---
Patient complaining of severe chest pain like an elephant on his chest Obtaining new EKG with increase in pain. Dr Zendejas aware. No further orders at this time.
[2024-01-28 17:01] LABS: Prothrombin Time 11.4 SECONDS (9.4-12.5)
[2024-01-28 17:04] LABS: Alanine Aminotransferase 39 IU/L (<50); Albumin 4.6 g/dL (3.5-5.0); Albumin Globulin Ratio 1.3 (1.0-2.8); Alkaline Phosphatase 59 U/L (38-126); Aspartate Aminotransferase 60 IU/L (17-59); BUN Creatinine Ratio 23.4 (6-22); Bilirubin Total 0.9 mg/dL (0.2-1.3); Blood Urea Nitrogen 15 mg/dL (9-20); Calcium 9.2 mg/dL (8.4-10.2); Carbon Dioxide 24 mmol/L (22-32); Chloride 102 mmol/L (98-107); Creatine Kinase 524 U/L (55-170); Estimated Glomerular Filt Rate > 60 mL/min (>60); Globulin 3.5 g/dL (1.7-4.1); Glucose 267 mg/dL (70-100); HEMOLYSIS 40 (0-50); Lipase 54 U/L (23-300); Magnesium 1.8 mg/dL (1.6-2.3); PTT Partial Thromboplastin Tim 33 SECONDS (25.1-36.5); Potassium 3.9 mmol/L (3.4-5.1); Sodium 133 mmol/L (137-145); Total Protein 8.1 g/dL (6.3-8.2)
[2024-01-28] MEDS: NITROGLYCERIN 0.4 MG SL TAB SL ×2 (17:06→17:12)
--- NOTE | 2024-01-28 17:08 | PC.NURSE ---
Pt is c/o numbness/tingling in extremities and worsening chest tightness. Provider Aashish has PRN nitro ordered. This RN has given one dose. Pt is tearful and shaking. BAKER HEAD Bernarda present and attempting EKG.
--- NOTE | 2024-01-28 17:10 | ED.GENADULT ---
HPI - General Adult <Sina Zendejas DO - Last Filed: 01/30/24 07:03> General Chief complaint: Shortness of Breath/Dyspnea Stated complaint: Dizzy Time Seen by Provider: 01/28/24 16:49 Source: patient and EMS Mode of arrival: EMS History of Present Illness HPI narrative: Patient is a 58-year-old male. Is totally blind. Has an insulin-dependent diabetic. He was brought in by EMS for evaluation it was initially described as dizziness however upon further questioning he states he was carrying some water up some stairs when he had sudden onset of chest discomfort and also dizziness. He also states he was having some palpitations. Upon arrival here in the emergency department he develop chest discomfort. No worse with palpation or movement. No coughing. No trauma. Is having some nausea but no vomiting. Related Data Home Medications Medication Instructions Recorded Confirmed lisinopril 5 mg tablet 5 mg PO QDAY ##0 01/15/11 01/16/21 insulin glargine 100 unit/mL 25 unit SQ BEDTIME ##0 01/05/13 01/16/21 subcutaneous solution (Lantus U-100 Insulin) aspirin 81 mg tablet,delayed 81 mg PO QDAY ##0 01/14/13 01/16/21 release multivitamin (Multiple Vitamins 1 tab PO QDAY ##0 09/14/16 01/16/21 tablet) insulin glargine 100 unit/mL (3 15 unit SUBCUT DAILY 01/16/21 01/16/21 mL) subcutaneous pen (Lantus Solostar U-100 Insulin) insulin lispro 100 unit/mL See Rx Instructions .Route .COMPLEX 01/16/21 01/16/21 subcutaneous pen (Humalog KwikPen (U-100) Insulin) Allergies Allergy/AdvReac Type Severity Reaction Status Date / Time vancomycin [VANCOMYCIN] Allergy Severe RED SKIN Verified 01/28/24 16:31 AND COULDN'T BREATH Review of Systems <Sina Zendejas DO - Last Filed: 01/30/24 07:03> Review of Systems ROS Unobtainable: All systems reviewed & are unremarkable except as noted in HPI and below Patient History <Sina Zendejas DO - Last Filed: 01/30/24 07:03> Medical History Hypertension Diabetes Social History Smoking Status: Never smoker Smoking Status: Never smoker alcohol intake frequency: a few times a month Substance Use Type: does not use Exam <Sina Zendejas DO - Last Filed: 01/30/24 07:03> Initial Vital Signs Initial Vital Signs: Vital Signs Pulse Rate 100 H 01/28/24 16:24 Respiratory Rate 28 H 01/28/24 16:24 Pulse Oximetry 100 01/28/24 16:24 Const General: cooperative and No ill appearing HENMT Head: normal to inspection and normocephalic Resp Effort & Inspection: normal respiratory effort Auscultation: clear to auscultation bilaterally Cardio Rate: regular rate Rhythm: regular rhythm GI Inspection: normal to inspection and non-distended Palpation: soft Skin General: no rashes or lesions noted Neuro General: patient alert, patient awake, patient oriented x3 and moves all extremities Speech: speech normal Extrem General: capillary refill normal <Zandra Dan MD - Last Filed: 01/29/24 01:39> Initial Vital Signs Initial Vital Signs: Vital Signs Pulse Rate 100 H 01/28/24 16:24 Respiratory Rate 28 H 01/28/24 16:24 Pulse Oximetry 100 01/28/24 16:24 Course <Sina Zendejas DO - Last Filed: 01/30/24 07:03> Orders Ordered: Discontinued Medications Aspirin (Aspirin 81 Mg Chew Tab) 324 mg PO NOW ONE Stop: 01/28/24 16:50 Last Admin: 01/28/24 16:54 Dose: 324 mg Documented By: MERCED Diazepam (Diazepam 10 Mg/2 Ml Syringe) 2 mg IV NOW ONE Stop: 01/28/24 17:48 Last Admin: 01/28/24 17:56 Dose: 2 mg Documented By: MERCED Lorazepam (Lorazepam 2 Mg/Ml Inj) 1 mg IV NOW ONE Stop: 01/28/24 17:32 Last Admin: 01/28/24 17:56 Dose: Not Given Documented By: MERCED Nitroglycerin (Nitroglycerin 0.4 Mg Sl Tab) 0.4 mg SL [id number] PRN PRN Reason: Chest Pain Last Admin: 01/28/24 17:12 Dose: 0.4 mg Documented By: Admin: 01/28/24 17:06 Dose: 0.4 mg Documented By: MERCED Vital Signs Vital signs: Vital Signs - 8 hr 01/28/24 17:45 01/28/24 17:45 01/28/24 18:00 Pulse Rate 99 H Respiratory Rate Blood Pressure 141/77 H 136/87 Pulse Oximetry Oxygen Delivery Method 01/28/24 18:00 01/28/24 18:15 01/28/24 18:15 Pulse Rate 103 H 96 H Respiratory Rate Blood Pressure 131/75 Pulse Oximetry 99 97 Oxygen Delivery Method 01/28/24 18:30 01/28/24 18:30 01/28/24 18:45 Pulse Rate 90 84 Respiratory Rate 24 25 H Blood Pressure 141/70 H Pulse Oximetry 99 98 Oxygen Delivery Method Room Air 01/28/24 18:45 01/28/24 19:00 01/28/24 19:00 Pulse Rate 86 Respiratory Rate 20 Blood Pressure 129/73 128/77 Pulse Oximetry 98 Oxygen Delivery Method Room Air 01/28/24 19:15 01/28/24 19:15 01/28/24 19:29 Pulse Rate 77 89 Respiratory Rate 17 35 H Blood Pressure 124/73 Pulse Oximetry 98 99 Oxygen Delivery Method 01/28/24 19:30 01/28/24 19:30 01/28/24 19:45 Pulse Rate 81 Respiratory Rate 24 Blood Pressure 148/74 H 138/65 Pulse Oximetry 99 Oxygen Delivery Method 01/28/24 19:45 01/28/24 20:00 01/28/24 20:00 Pulse Rate 82 76 Respiratory Rate 25 H 19 Blood Pressure 126/73 Pulse Oximetry 99 98 Oxygen Delivery Method 01/28/24 20:15 01/28/24 20:15 01/28/24 20:30 Pulse Rate 96 H Respiratory Rate Blood Pressure 127/74 127/80 Pulse Oximetry 98 Oxygen Delivery Method 01/28/24 20:30 01/28/24 20:55 Pulse Rate 87 75 Respiratory Rate 18 Blood Pressure 127/80 Pulse Oximetry 98 98 Oxygen Delivery Method Room Air <Zandra Dan MD - Last Filed: 01/29/24 01:39> Orders Ordered: Discontinued Medications Aspirin (Aspirin 81 Mg Chew Tab) 324 mg PO NOW ONE Stop: 01/28/24 16:50 Last Admin: 01/28/24 16:54 Dose: 324 mg Documented By: MERCED Diazepam (Diazepam 10 Mg/2 Ml Syringe) 2 mg IV NOW ONE Stop: 01/28/24 17:48 Last Admin: 01/28/24 17:56 Dose: 2 mg Documented By: MERCED Lorazepam (Lorazepam 2 Mg/Ml Inj) 1 mg IV NOW ONE Stop: 01/28/24 17:32 Last Admin: 01/28/24 17:56 Dose: Not Given Documented By: MERCED Nitroglycerin (Nitroglycerin 0.4 Mg Sl Tab) 0.4 mg SL [id number] PRN PRN Reason: Chest Pain Last Admin: 01/28/24 17:12 Dose: 0.4 mg Documented By: Admin: 01/28/24 17:06 Dose: 0.4 mg Documented By: MERCED Vital Signs Vital signs: Vital Signs - 8 hr 01/28/24 17:45 01/28/24 17:45 01/28/24 18:00 Pulse Rate 99 H Respiratory Rate Blood Pressure 141/77 H 136/87 Pulse Oximetry Oxygen Delivery Method 01/28/24 18:00 01/28/24 18:15 01/28/24 18:15 Pulse Rate 103 H 96 H Respiratory Rate Blood Pressure 131/75 Pulse Oximetry 99 97 Oxygen Delivery Method 01/28/24 18:30 01/28/24 18:30 01/28/24 18:45 Pulse Rate 90 84 Respiratory Rate 24 25 H Blood Pressure 141/70 H Pulse Oximetry 99 98 Oxygen Delivery Method Room Air 01/28/24 18:45 01/28/24 19:00 01/28/24 19:00 Pulse Rate 86 Respiratory Rate 20 Blood Pressure 129/73 128/77 Pulse Oximetry 98 Oxygen Delivery Method Room Air 01/28/24 19:15 01/28/24 19:15 01/28/24 19:29 Pulse Rate 77 89 Respiratory Rate 17 35 H Blood Pressure 124/73 Pulse Oximetry 98 99 Oxygen Delivery Method 01/28/24 19:30 01/28/24 19:30 01/28/24 19:45 Pulse Rate 81 Respiratory Rate 24 Blood Pressure 148/74 H 138/65 Pulse Oximetry 99 Oxygen Delivery Method 01/28/24 19:45 01/28/24 20:00 01/28/24 20:00 Pulse Rate 82 76 Respiratory Rate 25 H 19 Blood Pressure 126/73 Pulse Oximetry 99 98 Oxygen Delivery Method 01/28/24 20:15 01/28/24 20:15 01/28/24 20:30 Pulse Rate 96 H Respiratory Rate Blood Pressure 127/74 127/80 Pulse Oximetry 98 Oxygen Delivery Method 01/28/24 20:30 01/28/24 20:55 Pulse Rate 87 75 Respiratory Rate 18 Blood Pressure 127/80 Pulse Oximetry 98 98 Oxygen Delivery Method Room Air Medical Decision Making <Sina Zendejas, - Last Filed: 01/30/24 07:03> Lab Data Lab results reviewed: Yes I reviewed the patient's lab results. 01/28/24 16:31 01/28/24 16:31 Labs: Lab Results 01/28/24 01/28/24 01/28/24 Range/Units 16:31 18:53 19:28 WBC 4.7 (4.5-11.0) X10^3/uL RBC 4.44 L (4.5-5.9) X10^6/uL Hgb 14.1 (13.5-17.5) g/dL Hct 40.4 L (41-53) % MCV 90.9 (80-100) fL MCH 31.8 (26-34) PG MCHC 35.0 (30-36) % RDW 13.0 (11.6-14.8) % Plt Count 240 (150-400) X10^3/uL Neut % (Auto) 59.7 (50-75) % Lymph % (Auto) 26.0 (25-40) % Sebastian % (Auto) 9.8 (3-14) % Eos % (Auto) 2.2 (2-4) % Baso % (Auto) 2.3 H (0-2) % Neut # (Auto) 2800 (7054-9220) /uL Lymph # (Auto) 1200 (4169-8796) /uL Sebastian # (Auto) 500 (0-900) /uL Eos # (Auto) 100 (0-450) /uL Baso # (Auto) 100 (0-100) /uL PT 11.4 (9.4-12.5) SECONDS INR 1.0 (0.9-1.3) APTT 33 (25.1-36.5) SECONDS D-Dimer < 215 (<500) ng/ml Sodium 133 L (137-145) mmol/L Potassium 3.9 (3.4-5.1) mmol/L Chloride 102 (98-107) mmol/L Carbon Dioxide 24 (22-32) mmol/L BUN 15 (9-20) mg/dL Creatinine 0.64 L (0.66-1.25) mg/dL Estimated GFR > 60 (>60) mL/min BUN/Creatinine Ratio 23.4 H (6-22) Glucose 267 H (70-100) mg/dL Calcium 9.2 (8.4-10.2) mg/dL Magnesium 1.8 (1.6-2.3) mg/dL Total Bilirubin 0.9 (0.2-1.3) mg/dL AST 60 H (17-59) IU/L ALT 39 (<50) IU/L Alkaline Phosphatase 59 (38-126) U/L Total Creatine Kinase 524 H 431 H (55-170) U/L Troponin I < 0.012 < 0.012 (0.01-0.034) ng/mL Total Protein 8.1 (6.3-8.2) g/dL Albumin 4.6 (3.5-5.0) g/dL Globulin 3.5 (1.7-4.1) g/dL Albumin/Globulin Ratio 1.3 (1.0-2.8) Lipase 54 (23-300) U/L U Opiates 300ng/mL cut Negative (Negative) Ur Oxycodone Screen Negative (Negative) Urine Methadone Screen Negative (Negative) Ur Barbiturates Screen Negative (Negative) U Tricyclic Antidepress Negative (Negative) Ur Phencyclidine Scrn Negative (Negative) Ur Amphetamines Screen Negative (Negative) U Methamphetamines Scrn Negative (Negative) Ur MDMA Scrn (Ecstasy) Negative (Negative) U Benzodiazepines Scrn Negative (Negative) Urine Cocaine Screen Negative (Negative) U Marijuana (THC) Screen Positive H (Negative) Urine pH Normal (Normal) Urine Specific [place] Normal (Normal) Ur Creatinine Normal (Normal) Imaging Data Chest x-ray: Radiologist's Impression: PROCEDURE: XR CHEST 1V INDICATIONS: chest pain TECHNIQUE: One view of the chest was acquired. COMPARISON: [facility], , CHEST 1 VIEW, 09/14/2016, 20:10. FINDINGS: Surgical changes and devices: None. Lungs and pleura: Lungs are clear. No pleural effusions or pneumothorax. Mediastinum: Mediastinal contours appear normal. Heart size is normal. Bones and chest wall: No suspicious bony lesions. Overlying soft tissues appear unremarkable. IMPRESSION: No acute pulmonary process. ECG Data Attestation: I personally reviewed and interpreted this ECG as follows: Interpretation: Sinus rhythm Ventricular rate 91 Normal axis Normal QRS Normal QTC No ST T wave changes Repeat EKG Sinus rhythm Ventricular rate 95 Normal axis Normal QRS Unchanged prior Repeat EKG Sinus tachycardia Ventricular rate 109 Normal axis Other than rate unchanged from prior MDM Narrative Medical decision making narrative: Patient is very anxious. Is tachycardic but otherwise sinus rhythm on his EKG. Chest x-ray is unremarkable. Was given nitro and he stated that this did help his symptoms somewhat. He was then given a dose of Valium. Patient is hyperglycemic but not acidotic. Initial troponin negative. D-dimer is negative. Care turned over to Dr. Dan to follow-up on repeat troponin and disposition. <Zandra Dan MD - Last Filed: 01/29/24 01:39> Lab Data Labs: Lab Results 01/28/24 01/28/24 01/28/24 Range/Units 16:31 18:53 19:28 WBC 4.7 (4.5-11.0) X10^3/uL RBC 4.44 L (4.5-5.9) X10^6/uL Hgb 14.1 (13.5-17.5) g/dL Hct 40.4 L (41-53) % MCV 90.9 (80-100) fL MCH 31.8 (26-34) PG MCHC 35.0 (30-36) % RDW 13.0 (11.6-14.8) % Plt Count 240 (150-400) X10^3/uL Neut % (Auto) 59.7 (50-75) % Lymph % (Auto) 26.0 (25-40) % Sebastian % (Auto) 9.8 (3-14) % Eos % (Auto) 2.2 (2-4) % Baso % (Auto) 2.3 H (0-2) % Neut # (Auto) 2800 (8111-9028) /uL Lymph # (Auto) 1200 (5622-3112) /uL Sebastian # (Auto) 500 (0-900) /uL Eos # (Auto) 100 (0-450) /uL Baso # (Auto) 100 (0-100) /uL PT 11.4 (9.4-12.5) SECONDS INR 1.0 (0.9-1.3) APTT 33 (25.1-36.5) SECONDS D-Dimer < 215 (<500) ng/ml Sodium 133 L (137-145) mmol/L Potassium 3.9 (3.4-5.1) mmol/L Chloride 102 (98-107) mmol/L Carbon Dioxide 24 (22-32) mmol/L BUN 15 (9-20) mg/dL Creatinine 0.64 L (0.66-1.25) mg/dL Estimated GFR > 60 (>60) mL/min BUN/Creatinine Ratio 23.4 H (6-22) Glucose 267 H (70-100) mg/dL Calcium 9.2 (8.4-10.2) mg/dL Magnesium 1.8 (1.6-2.3) mg/dL Total Bilirubin 0.9 (0.2-1.3) mg/dL AST 60 H (17-59) IU/L ALT 39 (<50) IU/L Alkaline Phosphatase 59 (38-126) U/L Total Creatine Kinase 524 H 431 H (55-170) U/L Troponin I < 0.012 < 0.012 (0.01-0.034) ng/mL Total Protein 8.1 (6.3-8.2) g/dL Albumin 4.6 (3.5-5.0) g/dL Globulin 3.5 (1.7-4.1) g/dL Albumin/Globulin Ratio 1.3 (1.0-2.8) Lipase 54 (23-300) U/L U Opiates 300ng/mL cut Negative (Negative) Ur Oxycodone Screen Negative (Negative) Urine Methadone Screen Negative (Negative) Ur Barbiturates Screen Negative (Negative) U Tricyclic Antidepress Negative (Negative) Ur Phencyclidine Scrn Negative (Negative) Ur Amphetamines Screen Negative (Negative) U Methamphetamines Scrn Negative (Negative) Ur MDMA Scrn (Ecstasy) Negative (Negative) U Benzodiazepines Scrn Negative (Negative) Urine Cocaine Screen Negative (Negative) U Marijuana (THC) Screen Positive H (Negative) Urine pH Normal (Normal) Urine Specific [place] Normal (Normal) Ur Creatinine Normal (Normal) MDM Narrative Medical decision making narrative: Patient is very anxious. Is tachycardic but otherwise sinus rhythm on his EKG. Chest x-ray is unremarkable. Was given nitro and he stated that this did help his symptoms somewhat. He was then given a dose of Valium. Patient is hyperglycemic but not acidotic. Initial troponin negative. D-dimer is negative. Care turned over to Dr. Dan to follow-up on repeat troponin and disposition. Dr. Dan -care of patient is signed out to me, independent review of chart and patient performed. On my repeat assessment patient states that he was ?completely better? and feels much better. Patient states that his body was ?freaking out? and he believes that he had a panic attack contributing to his symptoms. He states that he was ready to go home, especially after knowing that his drug screen only shows marijuana. Patient was advised to follow up with a graphics software engineer, especially given that he was over 51 and has had a history of diabetes. Referral provided. Discharge Plan Departure Patient Disposition: Home Clinical Impression: Chest pain Instructions: DI for Chest Pain Activity Restrictions/Additional Instructions: Your laboratory work, EKG, chest x-ray were normal today. It does not look like you were having a heart attack at this time. I do recommend following up with Cardiology based on your age and your history of diabetes. A referral is in your paperwork. If you notice a return or worsening of your symptoms please come back to the ER for evaluation. Prescriptions: No Action lisinopril 5 MG tablet 5 mg PO QDAY Qty: 0 Lantus U-100 Insulin 100 UNIT/1 ML solution 25 unit SQ BEDTIME Qty: 0 aspirin 81 MG tablet,delayed release (DR/EC) 81 mg PO QDAY Qty: 0 multivitamin [Multiple Vitamins] 1 EACH tablet 1 tab PO QDAY Qty: 0 insulin lispro [Humalog KwikPen Insulin] 100 unit/mL insulin pen See Rx Instructions .ROUTE .COMPLEX Patient Comments: inject 12 to 22 units subcutaneously three times a day with meals...(REFER TO PRESCRIPTION NOTES). Rx Instructions: sliding scale Lantus Solostar U-100 Insulin 100 unit/mL (3 mL) insulin pen 15 unit SUBCUT DAILY Referrals: Ranulfo Frankel MD [Physician] - Leo Sykes MD [Primary Care Provider] - Stand Alone Forms: Patient Portal/API
--- NOTE | 2024-01-28 17:12 | EKG_ITS ---
[address] [address] Test Date: 2024-01-28 Pat Name: Suresh Starkey Department: Room: Gender: Male Reproduction Technician: RADAMES : 1965 Requested By: Order Number: [id number] Reading MD: Tim Mcguire Measurements Intervals [place] Rate: 109 P: 60 FL: 128 QRS: 28 QRSD: 88 T: 36 QT: 352 QTc: 474 Interpretive Statements Sinus tachycardia Electronically Signed On 01-30-2024 19:41:59 PDT by Tim Mcguire
[2024-01-28 17:16] LABS: Troponin I < 0.012 ng/mL (0.01-0.034)
--- NOTE | 2024-01-28 17:16 | PC.NURSE ---
Pt reports some improvement after first dose of nitro. Second dose given and patient reports, My tits feel really cold and down. He c/o of room getting weird and the room is spinning. Also states, I can't feel my legs at all. Pt reports chest heavier. 3rd dose held. Provider Aashish made aware.
--- NOTE | 2024-01-28 17:27 | PC.NURSE ---
Pt reports mushroom use 2 weeks ago. He reports feeling like he is floating. Chest heaviness persists, like I'm getting pushed into the bed, but I feel good. Provider made aware.
[2024-01-28 17:41] LABS: D Dimer < 215 ng/ml (<500)
[2024-01-28] MEDS: diazePAM 10 MG/2 ML SYRINGE 2 MG IV (17:56)
--- NOTE | 2024-01-28 18:06 | PC.NURSE ---
Pt reports some burning upon flushing patient 18 G wrist IV. This RN flushes again and patient states coolness and burning now. IV is patent with good blood return upon pulling back. heel sorter Erin Alvarez also checks IV. Pt now reports just coolness with IV.
--- NOTE | 2024-01-28 18:34 | PC.NURSE ---
This RN checks on patient. He reports feeling more calm but my chest is so heavy and also reports hard to breath, but I breathe fine now. Pt also c/o dizziness and legs feeling weird with any movement. Pt asks if mushrooms could do this to him. This RN educates on the use of illegal drugs like mushrooms and potential effects.
--- NOTE | 2024-01-28 19:32 | PC.NURSE ---
Pt dose self with insulin based on his machine. Placed in right upper thigh.
[2024-01-28 19:33] LABS: Creatine Kinase 431 U/L (55-170)
[2024-01-28 19:41] LABS: UR Morphine/Opiate cutoff 300 Negative (Negative); Ur Creatinine Normal (Normal); Ur Specific Gravity Normal (Normal); Urine Amphetamines Negative (Negative); Urine Barbiturates Negative (Negative); Urine Benzodiazepines Negative (Negative); Urine Cocaine Negative (Negative); Urine MDMA Negative (Negative); Urine Methadone Negative (Negative); Urine Methamphetamines Negative (Negative); Urine Oxycodone Negative (Negative); Urine Phencyclidine Negative (Negative); Urine Tetrahydrocannabinol Positive (Negative); Urine Tricyclic Antidepressant Negative (Negative); Urine pH Normal (Normal)
[2024-01-28 19:46] LABS: Troponin I < 0.012 ng/mL (0.01-0.034)
== END 2024-01-28 20:53 | disposition home or self-care (01) ==
PROVIDERS: Emergency Medicine; Emergency Provider Emergency Medicine; PCP Family Medicine
DX: R07.9 Chest pain, unspecified (principal); R00.0 Tachycardia, unspecified; R00.2 Palpitations; Z79.899 Other long term (current) drug therapy
CPT/HCPCS: 36415; 71045; 80053; 80305; 82550; 83690; 83735; 84484; 85025; 85379; 85610; 85730; 93005; 96374; 99284; J3360

== ENCOUNTER → 2024-03-20 09:05 | Outpatient (CLI) | payer MEDICARE, MEDICAID, SELFPAY ==
--- NOTE | 2024-03-20 09:08 | DI.NM.S_ITS ---
PROCEDURE: NM LAI PERF SPECT R&S PHARM Rest and pharmacological stress myocardial perfusion SPECT with gated imaging and ejection fraction RADIOPHARMACEUTICAL: 11.5 mCi Tc-99m tetrafosmin IV at rest and 26.7 mCi Tc-99m tetrafosmin IV at peak effect of pharmacological stress. A 2-eyq-xejueppy was performed. INDICATIONS: Other chest pain TECHNIQUE: Radiopharmaceutical was injected at peak stress test, and also at rest. SPECT images were obtained. SPECT myocardial perfusion images were displayed in short axis, horizontal long axis, and vertical long axis views. Gated images were reviewed using [email or web address] software. COMPARISON: None. CARDIAC STRESS: A pharmacologic stress test was performed under the supervision of an attending staff, using an infusion of regadenoson 0.4 mg IV. Hemodynamic data: There is normal blood pressure and heart rate response to pharmacologic stress. Symptoms: The patient denied anginal chest pain. EKG: No diagnostic changes of ischemia; no ectopy. FINDINGS: Raw data: There is good myocardial uptake of radiotracer. No significant motion artifacts. Bxtw-rt-rytlm ratio is 0.34 (normal is less than 0.38 for tetrafosmin tracer). Left ventricle function: Gated images demonstrate normal left ventricular wall thickening. No segmental wall motion abnormalities. No transient ischemic dilation; TID is 0.98 (normal less than 1.3). Left ventricle resting end diastolic volume is 90 mL. Left ventricle stress ejection fraction is 74%; normal range is above 45%. Myocardial perfusion: There is normal distribution of activity in the right and left ventricular myocardium. No fixed or reversible perfusion defects. IMPRESSION: Low risk study. No evidence of pharmacologic induced ischemia or scar. Normal LV size and function. Dictated by: Nichelle Segundo D.O. on 03/20/2024 at 16:04 Approved by: Nichelle Segundo D.O. on 03/20/2024 at 16:05
== END ==
LOC: NUCM 09:07
PROVIDERS: PCP Internal Medicine; Referring Provider Internal Medicine; Visit Provider Internal Medicine
DX: R07.89 Other chest pain (principal)
CPT/HCPCS: 78452; 93017; A9502; J2785

== ENCOUNTER → 2024-05-29 14:36 | Outpatient (CLI) | payer MEDICARE, MEDICAID, SELFPAY ==
--- NOTE | 2024-05-29 | DI.ECHO.S_ITS ---
[facility] : : [address] : [facility] : : [place], : : [place] [address] : : Phone: [phone] Echocardiogram Report + + :Name: AVERY SIBLEY Study Date: 05/29/2024 Height: 69 in : :[facility] ReadingLocation: Weight: 163 lb : : Gender: Male BSA: 1.9 m2 : :: 1965 Age: 58 yrs BP: 140/90 mmHg: :Reason For Study: OTHER CHEST PAIN : :Ordering Physician: LUDIVINA WATTERS Performed By: Derick Paris : :Referring: LUDIVINA WATTERS : + + Interpretation Summary 1. The left ventricular contractility is normal. Estimated ejection fraction is greater than 55% with no segmental wall motion abnormalities. No LVH. Grade 1 diastolic dysfunction. 2. The right ventricular contractility is normal. 3. All cardiac chambers are of normal size. 4. No significant valvular abnormalities. 5. No obvious intracardiac shunts. 6. No obvious intracardiac masses nor thrombi. 7. No hemodynamically significant pericardial effusion. 8. Low right-sided filling pressures. Conclusion: Normal biventricular systolic function with no significant valvular nor structural abnormalities. Procedure: A two-dimensional transthoracic echocardiogram with color flow and Doppler was performed. The study quality was technically good. There is no prior echocardiogram noted for this patient. The patient was in normal sinus rhythm during the exam. Left Ventricle: The left ventricle is normal in size. There is normal left ventricular wall thickness. There is no ventricular septal defect visualized. The ejection fraction is estimated to be 55-60%. There are no focal wall motion abnormalities. Right Ventricle: The right ventricle is normal in size and function. Atria: The left atrial size is normal. Right atrial size is normal. There is no Doppler evidence for an atrial septal defect. Mitral Valve: The mitral valve is normal in structure and function. There is mild mitral annular calcification. There is trace mitral regurgitation. Aortic Valve: The aortic valve is trileaflet. The aortic valve opens well. The aortic valve is mildly calcified. No aortic regurgitation is present. Tricuspid Valve: The tricuspid valve is normal in structure and function. No tricuspid regurgitation. Pulmonic Valve: The pulmonic valve is normal in structure and function. There is no pulmonic valvular regurgitation. Great Vessels: The aortic root is normal size. The dimensions of the ascending aorta are normal. The pulmonary artery is normal size. The IVC is of normal diameter and collapses greater than 50% with a sniff. This suggests a low right atrial pressure of 3 mm Hg. Pericardium/ Pleura There is no pericardial effusion. There is no pleural effusion. MMode/2D Measurements & Calculations LVIDd: 3.9 cm AoV Openin.9 cm LVIDs: 2.7 cm LVOT diam: 2.0 cm IVSd: 0.96 cm Ao root diam: 2.9 cm LVPWd: 0.92 cm asc Aorta Diam: 3.0 cm LV aparicio. diameter/BSA (cm/m^2): 2.1 Ao Arch Diam (Prox Trans): 2.4 cm LV sys. diameter/BSA (cm/m^2): 1.4 FS: 31.0 % EPSS: 0.98 cm LA A2 area: 16.2 cm2 RA long axis: 4.6 cm LA A4 area: 15.6 cm2 RA area: 12.4 cm2 LA length (vol): 4.9 cm RA vol: 28.7 ml LA vol: 43.4 ml RA : 15.1 ml/m2 LA vol index: 22.9 ml/m2 RVD1 (basal): 2.8 cm IVC diam: 1.5 cm RVD2 (mid): 2.3 cm TAPSE: 2.0 cm Doppler Measurements & Calculations Ao V2 max: 122.5 cm/sec LVOT Max Cole: 93.8 cm/sec Ao V2 mean: 86.0 cm/sec LV V1 max P.5 mmHg Ao V2 VTI: 21.9 cm LV V1 VTI: 16.5 cm Ao max P.0 mmHg Ao mean P.4 mmHg YIN(I,D): 2.5 cm2 MV E max cole: 53.7 cm/sec YIN(V,D): 2.5 cm2 MV A max cole: 90.4 cm/sec YIN indexed to BSA (cm^2/m^2): 1.3 MV E/A: 0.59 sev ratio: 0.75 Med Peak E' Cole: 4.6 cm/sec E/E' med: 11.8 Lat Peak E' Cole: 7.8 cm/sec E/E' lat: 6.9 E/e' average: 9.3 MV dec time: 0.27 sec PA V2 max: 76.8 cm/sec PA V2 mean: 60.4 cm/sec PA mean P.5 mmHg PA pr(Accel): 19.1 mmHg SV(LVOT): 53.9 ml Reading Physician:
== END ==
PROVIDERS: PCP Internal Medicine; Referring Provider Internal Medicine; Visit Provider Internal Medicine
DX: R07.89 Other chest pain (principal); I34.81 Nonrheumatic mitral (valve) annulus calcification
CPT/HCPCS: 93306

== ENCOUNTER 2025-03-06 16:10 | Emergency (ER) | payer MEDICARE, MEDICAID, SELFPAY ==
[2025-03-06] VITALS (12 sets, daily range): BP systolic 135–204; BP diastolic 69–91; PULSE 66–88; RESP 16–31; TEMP 37.1; O2SAT 96–99; BMI 23.9
--- NOTE | 2025-03-06 16:34 | EKG_ITS ---
[address] [address] Test Date: 2025-03-06 Pat Name: Suresh Starkey Department: Room: Gender: Male Gold Leaf Layer: JAYSON : 1965 Requested By: Order Number: [id number] Reading MD: Floyd Ramsay Measurements Intervals [place] Rate: 86 P: 61 [place]: 154 QRS: 33 QRSD: 82 T: 38 QT: 340 QTc: 406 Interpretive Statements Normal sinus rhythm Electronically Signed On 03-13-2025 14:01:48 PDT by Floyd Ramsay
--- NOTE | 2025-03-06 16:34 | DI.RAD.S_ITS ---
PROCEDURE: XR CHEST 1V INDICATIONS: Chest Pain TECHNIQUE: One view of the chest was acquired. COMPARISON: [facility], , CHEST 2 VIEW, 04/24/2015, 16:55. [facility], CHEST 1 VIEW, 09/14/2016, 20:10. [facility], , XR CHEST 1V, 01/28/2024, 16:54. FINDINGS: Surgical changes and devices: None. Lungs and pleura: On this semiupright portable chest examination, no large pneumothorax or large pleural effusions are seen. No focal infiltrates are seen. Mediastinum: The cardiac contours are within normal limits. The aorta demonstrates calcification and tortuosity. Bones and chest wall: No suspicious bony lesions. Age-appropriate bony degenerative changes are seen. Overlying soft tissues appear unremarkable. IMPRESSION: Limited portable chest examination, without a significant cardiopulmonary abnormality identified. Dictated by: Brian Aguirre M.D. on 03/06/2025 at 15:51 Approved by: Brian Aguirre M.D. on 03/06/2025 at 15:52
[2025-03-06 17:05] LABS: INR 1.0 (0.9-1.3); Prothrombin Time 10.9 SECONDS (9.4-12.5)
[2025-03-06 17:06] LABS: Add Manual Diff / Slide Review NO; Hematocrit 38.2 % (41-53); Hemoglobin 13.5 g/dL (13.5-17.5); Lymphocytes Absolute Auto 1200 /uL (1100-4500); Mean Corpuscular HGB Conc 35.3 % (30-36); Mean Corpuscular Hemoglobin 32.8 PG (26-34); Mean Corpuscular Volume 92.9 fL (80-100); Platelet Count 222 X10^3/uL (150-400)
[2025-03-06 17:07] LABS: PTT Partial Thromboplastin Tim 28 SECONDS (25.1-36.5)
[2025-03-06 17:09] LABS: Alanine Aminotransferase 31 IU/L (<50); Albumin 4.2 g/dL (3.5-5.0); Albumin Globulin Ratio 1.4 (1.0-2.8); Alkaline Phosphatase 51 U/L (38-126); Blood Urea Nitrogen 21 mg/dL (9-20); Calcium 9.2 mg/dL (8.4-10.2); Carbon Dioxide 25 mmol/L (22-32); Chloride 104 mmol/L (98-107); Creatine Kinase 348 U/L (55-170); Estimated Glomerular Filt Rate > 60 mL/min (>60); Globulin 3.0 g/dL (1.7-4.1); Glucose 191 mg/dL (70-99); HEMOLYSIS < 15 (0-50); Lipase 183 U/L (23-300); Magnesium 1.8 mg/dL (1.6-2.3); Potassium 4.2 mmol/L (3.4-5.1); Sodium 136 mmol/L (137-145); Total Protein 7.2 g/dL (6.3-8.2)
[2025-03-06 17:20] LABS: NT-proBNP (BNP-Adult 18+) 71 pg/mL (<125); Troponin I < 0.012 ng/mL (0.01-0.034)
--- NOTE | 2025-03-06 17:59 | ED.WEAKNESS ---
HPI - Weakness General Chief complaint: Weakness Stated complaint: Fellx1 week ago, weakness Time Seen by Provider: 03/06/25 17:58 History of Present Illness HPI Narrative: 58-year-old male insulin-dependent diabetic totally blind presents with fall week ago for which he landed on 2 by 4s in the driveway complaining of right hip back pain for which he has been alternating Tylenol and ibuprofen with no significant relief of his symptoms. Of note he also endorses numbness tingling down both legs been going on for the past few months. His last A1c is 6.8 from what I understand and apparently has gone up then but he is taking his medicines as directed. He denies headache dizziness blurred vision but he is visually blind the left eye was blind from a hockey sporting event in the right eye from being diabetic. He denies chest pain shortness of breath dyspnea on exertion. Other than what is stated 14 point review of system is negative. Related Data Home Medications ?Medication ?Instructions ?Recorded ?Confirmed lisinopril 5 mg tablet 5 mg PO QDAY ##0 01/15/11 01/16/21 insulin glargine 100 unit/mL 25 unit SQ BEDTIME ##0 01/05/13 01/16/21 subcutaneous solution (Lantus U-100 Insulin) aspirin 81 mg tablet,delayed 81 mg PO QDAY ##0 01/14/13 01/16/21 release multivitamin (Multiple Vitamins 1 tab PO QDAY ##0 09/14/16 01/16/21 tablet) insulin glargine 100 unit/mL (3 15 unit SUBCUT DAILY 01/16/21 01/16/21 mL) subcutaneous pen (Lantus Solostar U-100 Insulin) insulin lispro 100 unit/mL See Rx Instructions .Route .COMPLEX 01/16/21 01/16/21 subcutaneous pen (Humalog KwikPen (U-100) Insulin) Previous Rx's ?Medication ?Instructions ?Recorded gabapentin 300 mg capsule 300 mg PO TID #30 caps 03/06/25 Allergies Allergy/AdvReac Type Severity Reaction Status Date / Time vancomycin (VANCOMYCIN) Allergy Severe RED SKIN Verified 01/28/24 16:31 AND COULDN'T BREATH Review of Systems Review of Systems ROS Unobtainable: All systems reviewed & are unremarkable except as noted in HPI and below Patient History Medical History Hypertension Diabetes Social History Smoking Status: Current some day smoker Smoking Status: Current some day smoker alcohol intake frequency: a few times a month Exam Narrative Exam Narrative: GENERAL: [59] year old patient appears stated age. Well-developed patient, in mild distress. HEAD: Atraumatic. Normocephalic. EYES: Pupils equal round and reactive. Extraocular motions intact. No scleral icterus. No injection or drainage. ENT: Nose without bleeding, purulent drainage. Throat without erythema, tonsillar hypertrophy or exudate. Airway patent. NECK: Trachea midline. Non tender CARDIOVASCULAR: Regular rate and rhythm without murmurs, gallops, or rubs. RESPIRATORY: Clear to auscultation. Breath sounds equal bilaterally. No wheezes, rales, or rhonchi. GASTROINTESTINAL: Abdomen soft, non-tender, nondistended. EXTREMITIES: No edema or joint tenderness. Right hip and paralumbar sacral region L4-5 and S1 tender to palpate but no obvious deformity no crepitus no midline tenderness of CT or L-spine motor sensory intact +2 DP plus CPT cap refill less than 2 seconds. BACK: Nontender without deformity or crepitance. No flank tenderness. NEURO: AOx3. GCS 15 SKIN: No rash or erythema of visible areas Initial Vital Signs Initial Vital Signs: Vital Signs Temperature 98.7 F 03/06/25 16:23 Pulse Rate 88 03/06/25 16:23 Respiratory Rate 16 03/06/25 16:23 Blood Pressure 168/80 H 03/06/25 16:23 Pulse Oximetry 97 03/06/25 16:23 Oxygen Delivery Method Room Air 03/06/25 16:23 Course Orders Ordered: ED Orders 03/06/25 16:34 XR chest 1V Stat EKG-12 Lead Stat 03/06/25 16:40 Complete Blood Count AUTO DIFF Stat Comprehensive Metabolic Panel Stat Lipase Stat Magnesium Stat NT-proBNP (BNP-Adult 18+) Stat PTT Partial Thromboplastin Brennan Stat Prothrombin Time INR Stat Troponin & CK Cardiac Panel Stat 03/06/25 18:09 XR pelvis 1-2V Stat 03/06/25 18:10 XR lumbar spine 2-3V Stat Discontinued Medications Gabapentin (Gabapentin 300 Mg Capsule) 300 mg PO NOW ONE Stop: 03/06/25 18:10 Last Admin: 03/06/25 18:20 Dose: 300 mg Documented By: RB Lactated Ringer's (Lactated Ringers) 1,000 mls @ 1,000 mls/hr IV BOLUS ONE Stop: 03/06/25 19:08 Last Infusion: 03/06/25 19:37 Dose: Infused Documented By: Admin: 03/06/25 18:19 Dose: 1,000 mls/hr Documented By: RB Ketorolac Tromethamine (Ketorolac 30 Mg/Ml Vial) 15 mg IV NOW ONE Stop: 03/06/25 18:10 Last Admin: 03/06/25 18:19 Dose: 15 mg Documented By: RB Vital Signs Vital signs: Vital Signs - 8 hr 03/06/25 16:23 03/06/25 16:46 03/06/25 17:00 Temperature 98.7 F Pulse Rate 88 85 Respiratory Rate 16 24 Blood Pressure 168/80 H 148/69 H Pulse Oximetry 97 97 Oxygen Delivery Method Room Air 03/06/25 17:00 03/06/25 17:30 03/06/25 17:30 Temperature Pulse Rate 79 78 Respiratory Rate 19 20 Blood Pressure 149/74 H Pulse Oximetry 97 97 Oxygen Delivery Method Room Air 03/06/25 18:00 03/06/25 18:00 03/06/25 18:37 Temperature Pulse Rate 74 80 Respiratory Rate 27 H Blood Pressure 138/76 Pulse Oximetry 96 98 Oxygen Delivery Method 03/06/25 18:38 03/06/25 18:38 03/06/25 19:00 Temperature Pulse Rate 81 71 Respiratory Rate 27 H 21 Blood Pressure 204/91 H Pulse Oximetry 97 99 Oxygen Delivery Method 03/06/25 19:00 03/06/25 19:30 03/06/25 19:30 Temperature Pulse Rate 69 Respiratory Rate 27 H Blood Pressure 170/81 H 145/76 H Pulse Oximetry 97 Oxygen Delivery Method 03/06/25 20:00 03/06/25 20:00 Temperature Pulse Rate 66 Respiratory Rate 29 H Blood Pressure 135/78 Pulse Oximetry 98 Oxygen Delivery Method MDM - Weakness Lab Data 03/06/25 16:40 03/06/25 16:40 Labs: Lab Results 03/06/25 Range/Units 16:40 WBC 4.9 (4.5-11.0) X10^3/uL RBC 4.11 L (4.5-5.9) X10^6/uL Hgb 13.5 (13.5-17.5) g/dL Hct 38.2 L (41-53) % MCV 92.9 (80-100) fL MCH 32.8 (26-34) PG MCHC 35.3 (30-36) % RDW 13.2 (11.6-14.8) % Plt Count 222 (150-400) X10^3/uL Neut % (Auto) 65.1 (50-75) % Lymph % (Auto) 24.1 L (25-40) % [place] % (Auto) 7.8 (3-14) % Eos % (Auto) 2.3 (2-4) % Baso % (Auto) 0.7 (0-2) % Neut # (Auto) 3200 (3505-4299) /uL Lymph # (Auto) 1200 (2271-2045) /uL [place] # (Auto) 400 (0-900) /uL Eos # (Auto) 100 (0-450) /uL Baso # (Auto) 0 (0-100) /uL PT 10.9 (9.4-12.5) SECONDS INR 1.0 (0.9-1.3) APTT 28 (25.1-36.5) SECONDS Sodium 136 L (137-145) mmol/L Potassium 4.2 (3.4-5.1) mmol/L Chloride 104 (98-107) mmol/L Carbon Dioxide 25 (22-32) mmol/L BUN 21 H (9-20) mg/dL Creatinine 0.64 L (0.66-1.25) mg/dL Estimated GFR > 60 (>60) mL/min BUN/Creatinine Ratio 32.8 H (6-22) Glucose 191 H (70-99) mg/dL Calcium 9.2 (8.4-10.2) mg/dL Magnesium 1.8 (1.6-2.3) mg/dL Total Bilirubin 0.6 (0.2-1.3) mg/dL AST 46 (17-59) IU/L ALT 31 (<50) IU/L Alkaline Phosphatase 51 (38-126) U/L Total Creatine Kinase 348 H (55-170) U/L Troponin I < 0.012 (0.01-0.034) ng/mL NT-Pro-B Natriuret Pep 71 (<125) pg/mL Total Protein 7.2 (6.3-8.2) g/dL Albumin 4.2 (3.5-5.0) g/dL Globulin 3.0 (1.7-4.1) g/dL Albumin/Globulin Ratio 1.4 (1.0-2.8) Lipase 183 (23-300) U/L Imaging Data Chest x-ray: Radiologist Impression: [address] [address] XRay Report Signed Patient: Suresh Starkey MR#: [id number] : 1965 Acct:[id number] Age/Sex: 59 / M Date of Service: 03/06/25 Loc: ED Accession Number: [id number] Procedure: XR chest 1V Ordering Provider: Nupur Villalpando MD PROCEDURE: XR CHEST 1V INDICATIONS: Chest Pain TECHNIQUE: One view of the chest was acquired. COMPARISON: [facility], CR, CHEST 2 VIEW, 04/24/2015, 16:55. [facility], CR, CHEST 1 VIEW, 09/14/2016, 20:10. [facility], , XR CHEST 1V, 01/28/2024, 16:54. FINDINGS: Surgical changes and devices: None. Lungs and pleura: On this semiupright portable chest examination, no large pneumothorax or large pleural effusions are seen. No focal infiltrates are seen. Mediastinum: The cardiac contours are within normal limits. The aorta demonstrates calcification and tortuosity. Bones and chest wall: No suspicious bony lesions. Age-appropriate bony degenerative changes are seen. Overlying soft tissues appear unremarkable. IMPRESSION: Limited portable chest examination, without a significant cardiopulmonary abnormality identified. Extremity x-ray #1: Radiologist Impression: [address] [id number] XRay Report Signed Patient: Suresh Starkey MR#: [id number] : 1965 Acct:[id number] Age/Sex: 59 / M Date of Service: 03/06/25 Loc: ED Accession Number: [id number] Procedure: XR lumbar spine 2-3V Ordering Provider: Wolf Chery D.O. PROCEDURE: XR LUMBAR SPINE 2-3V INDICATIONS: trauma TECHNIQUE: 3 views of the lumbar spine were acquired. COMPARISON: [facility], , XR CHEST 1V, 03/06/2025, 16:35. [facility], CR, XR PELVIS 1-2V, 03/06/2025, 18:13. FINDINGS: Bones: This patient has transitional lumbar anatomy. For the purposes of this examination, the level with the last well-developed pair of ribs is considered to be T12. By this numbering scheme, there is a transitional, rudimentary disc seen at the S1-S2 level. There is normal bony alignment. No vertebral body compression fractures. No suspicious bony lesions. The disc heights are well preserved. Lower lumbar spine facet arthropathy is seen. Soft tissues: Overlying bowel gas pattern is normal. No suspicious soft tissue calcifications. Right lower quadrant postoperative clips are seen. IMPRESSION: No acute plain film abnormality is seen. Degenerative changes are seen, with lower lumbar spine facet arthropathy. If it would be helpful for clinical management decision making, please consider a dedicated, scheduled lumbar spine MRI for further evaluation (assuming that there is no contraindication). Dictated by: Brian Aguirre M.D. on 03/06/2025 at 17:56 Approved by: Brian Aguirre M.D. on 03/06/2025 at 17:57 Extremity x-ray #2: Radiologist Impression: [address] [id number] XRay Report Signed Patient: Suresh Starkey MR#: [id number] : 1965 Acct:[id number] Age/Sex: 59 / M Date of Service: 03/06/25 Loc: ED Accession Number: [id number] Procedure: XR pelvis 1-2V Ordering Provider: Wolf Chery D.O. PROCEDURE: XR PELVIS 1-2V INDICATIONS: trauma TECHNIQUE: 1 view(s) of the pelvis acquired. COMPARISON: [facility], CR, XR CHEST 1V, 03/06/2025, 16:35. [facility], , XR LUMBAR SPINE 2-3V, 03/06/2025, 18:13. FINDINGS: Bones: No fractures or dislocations. No suspicious bony lesions. Soft tissues: Visualized bowel gas pattern is normal. No suspicious soft tissue calcifications. IMPRESSION: No displaced fractures can be seen on this single view plain film study. ECG Data Interpretation: NSR HR 86 MO 154 QRS [address]-t wave change Change from 01/28/24 [facility] Narrative Medical decision making narrative: Vital signs, nurse triage note, medication list, previous ER visits, and all imaging studies reviewed. Lumbar x-ray showed no acute plain film abnormality degenerative changes seen in lower lumbar spine facet arthropathy. Pelvic x-ray showed no displaced fracture. Chest x-ray showed no acute process. Sodium 136 BUN 21 creatinine 0.64 glucose 191 T CK 348 troponin normal. Patient given fluids Toradol and gabapentin here. Differential diagnosis includes contusion fracture dislocation arthritis neuropathy. Will DC home on gabapentin. Discharge Plan Departure Patient Disposition: Home Clinical Impression: Fall, Acute hip pain, Peripheral autonomic neuropathy due to secondary diabetes Instructions: DI for Diabetic Neuropathy Activity Restrictions/Additional Instructions: Return with new or worsening symptoms. Keep hydrated. Take your medicines directed. Follow up PCP in 1-2 weeks if no improvement in symptoms. Prescriptions: New gabapentin 300 mg capsule 300 mg PO TID Qty: 30 0RF No Action lisinopril 5 MG tablet 5 mg PO QDAY Qty: 0 Lantus U-100 Insulin 100 UNIT/1 ML solution 25 unit SQ BEDTIME Qty: 0 aspirin 81 MG tablet,delayed release (DR/EC) 81 mg PO QDAY Qty: 0 multivitamin [Multiple Vitamins] 1 EACH tablet 1 tab PO QDAY Qty: 0 insulin lispro [Humalog KwikPen Insulin] 100 unit/mL insulin pen See Rx Instructions .ROUTE .COMPLEX Patient Comments: inject 12 to 22 units subcutaneously three times a day with meals...(REFER TO PRESCRIPTION NOTES). Rx Instructions: sliding scale Lantus Solostar U-100 Insulin 100 unit/mL (3 mL) insulin pen 15 unit SUBCUT DAILY Referrals: Marshal Art MD [Primary Care Provider, Internal Medicine] Stand Alone Forms: Patient Portal/API
--- NOTE | 2025-03-06 18:09 | DI.RAD.S_ITS ---
PROCEDURE: XR PELVIS 1-2V INDICATIONS: trauma TECHNIQUE: 1 view(s) of the pelvis acquired. COMPARISON: [facility], CR, XR CHEST 1V, 03/06/2025, 16:35. [facility], CR, XR LUMBAR SPINE 2-3V, 03/06/2025, 18:13. FINDINGS: Bones: No fractures or dislocations. No suspicious bony lesions. Soft tissues: Visualized bowel gas pattern is normal. No suspicious soft tissue calcifications. IMPRESSION: No displaced fractures can be seen on this single view plain film study. Dictated by: Brian Aguirre M.D. on 03/06/2025 at 17:55 Approved by: Brian Aguirre M.D. on 03/06/2025 at 17:55
--- NOTE | 2025-03-06 18:10 | DI.RAD.S_ITS ---
PROCEDURE: XR LUMBAR SPINE 2-3V INDICATIONS: trauma TECHNIQUE: 3 views of the lumbar spine were acquired. COMPARISON: [facility], CR, XR CHEST 1V, 03/06/2025, 16:35. [facility], CR, XR PELVIS 1-2V, 03/06/2025, 18:13. FINDINGS: Bones: This patient has transitional lumbar anatomy. For the purposes of this examination, the level with the last well-developed pair of ribs is considered to be T12. By this numbering scheme, there is a transitional, rudimentary disc seen at the S1-S2 level. There is normal bony alignment. No vertebral body compression fractures. No suspicious bony lesions. The disc heights are well preserved. Lower lumbar spine facet arthropathy is seen. Soft tissues: Overlying bowel gas pattern is normal. No suspicious soft tissue calcifications. Right lower quadrant postoperative clips are seen. IMPRESSION: No acute plain film abnormality is seen. Degenerative changes are seen, with lower lumbar spine facet arthropathy. If it would be helpful for clinical management decision making, please consider a dedicated, scheduled lumbar spine MRI for further evaluation (assuming that there is no contraindication). Dictated by: Brian Aguirre M.D. on 03/06/2025 at 17:56 Approved by: Brian Aguirre M.D. on 03/06/2025 at 17:57
[2025-03-06] MEDS: LACTATED RINGERS 1,000 ML 1000 ML IV (18:19)
[2025-03-06] MEDS: KETOROLAC 30 MG/ML VIAL 15 MG IV (18:19)
[2025-03-06] MEDS: GABAPENTIN 300 MG CAPSULE PO (18:20)
== END 2025-03-06 21:01 | disposition home or self-care (01) ==
PROVIDERS: Emergency Medicine; Emergency Provider Family Medicine; PCP Internal Medicine
DX: M25.551 Pain in right hip (principal); R07.9 Chest pain, unspecified; E13.43 Other specified diabetes mellitus with diabetic autonomic (poly)neuropathy; W19.XXXA Unspecified fall, initial encounter
CPT/HCPCS: 36415; 71045; 72100; 72170; 80053; 82550; 83690; 83735; 83880; 84484; 85025; 85610; 85730; 93005; 96361; 96374; 99284; J1885